=== PATIENT | male | born 1955 | race Caucasian/White ===

== ENCOUNTER → 2019-02-23 | Outpatient (CLI) | payer BC ==
--- NOTE | 2019-02-23 15:38 | RADIOLOGY IMAGING REPORT ---
FACILITY: [facility] PATIENT NAME: Boris Stanton : 1955 MR: [id number] V: [id number] EXAM DATE: [id number] ORDERING PHYSICIAN: [facility] TECHNOLOGIST: [place] [facility] [place] : 1955 Visit/Account:[id number] Date of Sevice: 02/23/2019 Exam type: HIP RIGHT History: Low back pain in right hip pain for years Comparison: None. Findings: Two views submitted There are severe degenerative changes of both hip joints with severe narrowing the superior aspect of the joint spaces are numerous subchondral cysts also identified in the femoral heads and sclerosis o f the acetabula bilaterally. No evidence of acute fracture or dislocation IMPRESSION: 1. Severe degenerative changes of both hip joints Report Dictated By: Ursula Herman MD at 02/23/2019 3:29 PM Report E-Signed By: Ursula Herman MD at 02/23/2019 3:30 PM WSN:[email or web address]
--- NOTE | 2019-02-23 15:41 | RADIOLOGY IMAGING REPORT ---
FACILITY: [facility] PATIENT NAME: Boris Stanton : 1955 MR: [id number] V: [id number] EXAM DATE: [id number] ORDERING PHYSICIAN: [facility] TECHNOLOGIST: Location: [facility] [place] Patient: Boris Stanton : 1955 Visit/Account:[id number] Date of Sevice: 02/23/2019 Exam type: LUMBAR SPINE 4 VIEWS History: Low back pain in right hip pain for years Comparison: None. Findings: Four views are submitted. There five nonrib-bearing lumbar-type vertebral bodies present. There is a 3 mm anterior listhesis o f L4 with respect L5 which appears to be on a degenerative basis. There is mild disc space narrowing at L4-5 moderate disc space narrowing at L5-S1. Mild to moderate degenerative facet joint changes a re identified at L4-5 and L5-S1 there appears be mild loss of height of the T11 vertebral body that i s incompletely imaged. Also incompletely imaged are surgical changes of both hip joints better depic kerry on today's right hip series IMPRESSION: 1. Spondylotic changes of the lumbar spine as detailed above. If patient's pain continues MR may be helpful Report Dictated By: Ursula Herman MD at 02/23/2019 3:30 PM Report E-Signed By: Ursula Herman MD at 02/23/2019 3:33 PM WSN:[email or web address]
== END ==
LOC: RAD 14:38
PROVIDERS: ATTEND Chiropractor
DX: M54.5 Low back pain (principal); M54.16 Radiculopathy, lumbar region; M25.651 Stiffness of right hip, not elsewhere classified; M25.551 Pain in right hip; M47.816 Spondylosis without myelopathy or radiculopathy, lumbar region
CPT/HCPCS: 72120